=== PATIENT | female | born 1970 | race Caucasian/White ===

== ENCOUNTER → 2017-12-14 | Outpatient (CLI) | payer OTHER | LOC: PLD 14:18 → LAB SHORT 14:18 | DX: R87.810 Cervical high risk human papillomavirus (HPV) DNA test positive (principal) | CPT/HCPCS: 88305 ==

== ENCOUNTER → 2017-12-14 | Outpatient (CLI) | payer OTHER | LOC: LAB 12:31 → LAB SHORT 12:31 | DX: B37.3 Candidiasis of vulva and vagina (principal) | CPT/HCPCS: 87070; 87147; 87205 ==

== ENCOUNTER 2020-06-07 21:40 | Emergency (ER) | payer BC, OTHER ==
[~2020-06-07] VITALS: Ht 170.2 cm; Wt 76.2 kg
== END 2020-06-07 23:30 | disposition left against medical advice (07) ==
LOC: ER 21:40
DX: K92.0 Hematemesis (principal); R00.0 Tachycardia, unspecified
CPT/HCPCS: 99284-25; A9270

== ENCOUNTER 2020-06-08 12:54 | Inpatient (IN) | payer BC, OTHER ==
[~2020-06-08] VITALS: Ht 170.2 cm; Wt 73.7 kg
[2020-06-08 13:59] LABS: BASOPHILS ABSOLUTE AUTO 0.03 K/mm3 (0.00-0.23); BASOPHILS PERCENT AUTO 0 % (0-2); EOSINOPHILS ABSOLUTE AUTO 0.02 K/mm3 (0.00-0.68); EOSINOPHILS PERCENT AUTO 0 % (0-6); Hematocrit 29.6 % (33.0-51.0); Hemoglobin 9.7 g/dL (11.5-16.0); IMMATURE GRAN ABSOLUTE AUTO 0.03 K/mm3 (0.00-0.10); IMMATURE GRAN PERCENT AUTO 0 % (0-1); LYMPHOCYTES ABSOLUTE AUTO 0.52 K/mm3 (0.84-5.20); LYMPHOCYTES PERCENT AUTO 7 % (21-46); MONOCYTES ABSOLUTE AUTO 0.89 K/mm3 (0.16-1.47); MONOCYTES PERCENT AUTO 12 % (4-13); Mean Corpuscular HGB 31.8 pg (26.0-34.0); Mean Corpuscular HGB Conc 32.8 g/dL (31.5-36.5); Mean Corpuscular Volume 97 fL (80-100); NEUTROPHILS ABSOLUTE AUTO 6.13 K/mm3 (1.96-9.15); NEUTROPHILS PERCENT AUTO 80 % (41-73); Platelet Count 92 K/mm3 (150-400); RDW Coefficient Variation 14.8 % (11.7-14.2); RDW Standard Deviation 52.6 fL (35.1-46.3); Red Blood Cell Count 3.05 M/mm3 (3.80-5.20); White Blood Cell Count 7.62 K/mm3 (4.00-11.30)
[2020-06-08 14:08] LABS: Alanine Aminotransfer (ALT/SGP 61 U/L (12-78); Albumin/Globulin Ratio 0.5 (0.8-1.8); Alk Phos 102 U/L (50-136); Anion Gap 7 mmol/L (6-16); Aspartate Aminotrans (AST/SGOT 106 U/L (12-37); Blood Urea Nitrogen 16 mg/dL (8-24); Bun/Creatinine Ratio 33.7 (12.0-20.0); CO2, Blood 26 mmol/L (21-32); Calcium, Blood 8.4 mg/dL (8.5-10.1); Chloride, Blood 102 mmol/L (98-108); Creatinine, Blood 0.48 mg/dL (0.40-1.00); Globulin, Blood 6.1 g/dL (2.2-4.0); Glomerular Filtration Rate >60 (60-); Glucose, Blood 112 mg/dL (70-99); Potassium, Blood 3.7 mmol/L (3.5-5.5); Sodium, Blood 135 mmol/L (136-145); Total Protein, Blood 9.1 g/dL (6.4-8.2)
[2020-06-08 16:03] LABS: International Normalized Ratio 1.19; Prothrombin Time Results 12.6 Sec (9.7-11.5)
[2020-06-08 18:26] LABS: Influenza A, PCR NEGATIVE (NEGATIVE); Influenza B, PCR NEGATIVE (NEGATIVE); Resp Syncytial Virus, PCR NEGATIVE (NEGATIVE); SARS-Cov-2 (COVID-19) PCR, MMC NEGATIVE (NEGATIVE)
[2020-06-08 19:09] LABS: Hematocrit 23.6 % (33.0-51.0); Hemoglobin 7.8 g/dL (11.5-16.0)
--- NOTE | 2020-06-08 20:56 | NUR ---
PHARMACIST PHARMACY CALLED REGARDING IV COMPATABILITY FOR PROTONIX, SANDOSTATIN, AND BANNANA BAG. PHARMACIST STATES PROTONIX AND SANDOSTATIN COMPATABLE AT Y SITE.
[2020-06-09 01:37] LABS: Hematocrit 23.1 % (33.0-51.0); Hemoglobin 7.6 g/dL (11.5-16.0); Mean Corpuscular HGB 32.2 pg (26.0-34.0); Mean Corpuscular HGB Conc 32.9 g/dL (31.5-36.5); Mean Corpuscular Volume 98 fL (80-100); Mean Platelet Volume 10.3 fL (9.1-12.4); Platelet Count 83 K/mm3 (150-400); RDW Coefficient Variation 14.8 % (11.7-14.2); RDW Standard Deviation 53.7 fL (35.1-46.3); Red Blood Cell Count 2.36 M/mm3 (3.80-5.20); White Blood Cell Count 7.51 K/mm3 (4.00-11.30)
[2020-06-09 01:55] LABS: Alanine Aminotransfer (ALT/SGP 47 U/L (12-78); Albumin, Blood 2.5 g/dL (3.4-5.0); Albumin/Globulin Ratio 0.5 (0.8-1.8); Alk Phos 82 U/L (50-136); Anion Gap 7 mmol/L (6-16); Aspartate Aminotrans (AST/SGOT 82 U/L (12-37); Bilirubin, Total 1.6 mg/dL (0.1-1.0); Blood Urea Nitrogen 12 mg/dL (8-24); Bun/Creatinine Ratio 23.1 (12.0-20.0); CO2, Blood 24 mmol/L (21-32); Calcium, Blood 7.4 mg/dL (8.5-10.1); Chloride, Blood 108 mmol/L (98-108); Creatinine, Blood 0.52 mg/dL (0.40-1.00); Glomerular Filtration Rate >60 (60-); Glucose, Blood 104 mg/dL (70-99); Magnesium, Blood 1.9 mg/dL (1.6-2.4); Phosphorus, Blood 1.9 mg/dL (2.5-4.9); Potassium, Blood 3.6 mmol/L (3.5-5.5); Sodium, Blood 139 mmol/L (136-145); Total Protein, Blood 7.5 g/dL (6.4-8.2)
[2020-06-09 03:34] LABS: Source, Urine Clean Catch
[2020-06-09 03:35] LABS: Bilirubin, Urine Neg (Neg); Blood, Urine 5+ (Neg); Glucose Qualitative, Urine Neg (Neg); Ketones, Urine Neg (Neg); Leukocyte Esterase, Urine 3+ (Neg); Nitrite, Urine Neg (Neg); Protein, Urine 1+ (Neg); Urobilinogen, Urine NORM (Normal)
[2020-06-09 03:43] LABS: Appearance, Urine Hazy (Clear); Color, Urine Yellow (P-Yellow)
[2020-06-09 03:45] LABS: Bacteria Mod /hpf; Squamous Epithelial Cells Mod /hpf (Few); White Blood Cells, Urine 25-50 /hpf (0-5)
--- NOTE | 2020-06-09 06:03 | NUR ---
SHIFT SUMMARY PT TO UNIT FROM ED AT BEGINNING OF SHIFT. AXO. DAUGHTER PRESENT TO HELP WITH ASDMISSION. ADMIT PACKET COMPLETED. PT ON RA. IN ST 100'S WITH STABLE VS. PT HAVING MULTIPLE BM'S. BEGINNING OF SHIFT, LARGE RED LIQUID STOOLS. THESE HAVE SLOWLY DARKENED AND LESSENED IN AMOUNT. PT DENYING NAUSEA POST ADMIT. PT NPO EXCEPT A FEW SWIGS OF WATER. PROTONIX, PANTOPRAZOLE, NS, AND BANNANA BAG INFUSING. HGB STILL >7 AT THIS TIME. WILL CONTINUE TO MONITOR UNTIL SHIFT CHANGE.
[2020-06-09 08:28] LABS: Hematocrit 22.8 % (33.0-51.0); Hemoglobin 7.3 g/dL (11.5-16.0)
--- NOTE | 2020-06-09 12:06 | NUR ---
06/09/20 1206 Raquel Bergeron History, Chart, Medications and Allergies reviewed before start of procedure.MONITOR INTACT WITH CONTINUOUS PULSE OXIMETRY AND INTERMITTENT BP.3-LEAD EKG REVIEWED WITH PHYSICIAN PRIOR TO START OF PROCEDURE.O2 VIA N/C INTACT THROUGHOUT SEDATION/PROCEDURE. See Anesthesia record.
--- NOTE | 2020-06-09 12:30 | NUR ---
ZOFRAN 4MG WAS GIVEN POST PRECEDURE DUE TO N/V.
[2020-06-09 13:51] LABS: Hematocrit 22.2 % (33.0-51.0); Hemoglobin 7.2 g/dL (11.5-16.0)
--- NOTE | 2020-06-09 17:46 | NUR ---
SHIFT SUMMARY PATIENT CONTINUED TO HAVE LIQUID AND RED STOOLS THIS SHIFT. PATIENT HAD EGD DONE BY DR. PINK, VARICES FOUND AND BANDS PLACED, SEE OPERATIVE REPORT. Hgb REMAINED 7+ THIS SHIFT. PATIENT CONTINUED ON OCTREOTIDE GTT, PROTONIX CHANGED TO IV BID. PATIENT STARTED ON CLEAR LIQUID DIET, LOW INTAKE REST OF SHIFT POST-EGD. PATIENT REQUESTING TO REST. PATIENT HYPERTENSIVE AT TIMES, STARTING INDERAL TONIGHT FOR BP. PATIENT ON ROOM AIR, SBA TO BEDSIDE COMMODE FOR LINE MANAGEMENT.
[2020-06-10 04:10] LABS: Hematocrit 23.4 % (33.0-51.0); Hemoglobin 7.6 g/dL (11.5-16.0)
[2020-06-10 04:55] LABS: Percent Saturation 13.8 % (15.0-50.0); Phosphorus, Blood 2.5 mg/dL (2.5-4.9)
--- NOTE | 2020-06-10 05:44 | NUR ---
SHIFT SUMMARY NO ACUTE CHANGES THIS SHIFT. VSS. PANTOPRAZOLE GTT INFUSING PER EMAR. NO BLOODY BM'S THIS SHIFT. PT DENIES NAUSEA. REMAINS IN SR, ON RA, AND COOPERATIVE. 1 BROWN BM THIS SHIFT. OTHERWISE, PT RESTING IN ROOM T/O SHIFT. HGB RISING. WILL CONTINUE TO MONITOR UNTIL SHIFT CHANGE.
--- NOTE | 2020-06-10 07:30 | NUR ---
ASSUMED CARE: CAME TO BEDSIDE TO REPLACE TELEMETRY AFTER PT GAVE SELF BEDBATH. PT DENIES DARK OR BLOODY STOOL SINCE PROCEDURE. SANDOSTATIN GTT RUNNING. NSR ON TELE. NO ACUTE NEEDS OR CONCERNS AT THIS TIME.
[2020-06-10] MEDS ORDERED: Hair, Skin & N1 EACH PO (11:05)
[2020-06-10] MEDS ORDERED: CARAFATE1 GM/10 M1 PO (11:05)
[2020-06-10] MEDS ORDERED: CIPR500 PO (11:06)
[2020-06-10] MEDS ORDERED: B-1100 M1 PO (11:06)
[2020-06-10] MEDS ORDERED: DOCU100 PO (11:06)
[2020-06-10] MEDS ORDERED: SENN187 PO (11:07)
[2020-06-10] MEDS ORDERED: FEROSUL325 M1 PO (11:07)
[2020-06-10] MEDS ORDERED: PANT40 PO (11:07)
[2020-06-10] MEDS ORDERED: NADO20 PO (11:07)
--- NOTE | 2020-06-10 11:59 | NUR ---
PT GIVEN INSTRUCTIONS REGARDING NEW MEDICATIONS AND FOLLOW UP APPOINTMENTS. PT GIVEN NUMBERS OF A FEW CLINICS SO THAT PT COULD ESTABLISH PCP. DENIED FURTHER QUESTIONS OR CONCERNS. ESCORTED OUT VIA WHEEL CHAIR BY TONEY. LOREE CORTEZ
[2020-06-11 05:09] LABS: HBSAG SCREEN Negative (Negative); HEP A AB, IGM Negative (Negative); HEP B CORE AB, IGM Positive (Negative); HEP C VIRUS AB <0.1 (0.0-0.9)
== END 2020-06-10 11:40 | disposition home or self-care (01) | DRG 433 ==
LOC: ER 12:54 → ERHOLD 16:15 → PCU 16:15
PROVIDERS: Emergency Medicine; Physician Assistant; Student in an Organized Health Care Education/Training Program; ADMIT Internal Medicine
PROC: 06L38CZ Occlusion of Esophageal Vein with Extraluminal Device, Via Natural or Artificial Opening Endoscopic (ICD-10-PCS; principal; 2020-06-09 11:30)
DX: K70.30 Alcoholic cirrhosis of liver without ascites (principal); E87.1 Hypo-osmolality and hyponatremia; K76.6 Portal hypertension; I85.10 Secondary esophageal varices without bleeding; D69.59 Other secondary thrombocytopenia; E83.39 Other disorders of phosphorus metabolism; D50.0 Iron deficiency anemia secondary to blood loss (chronic); Z20.822 Contact with and (suspected) exposure to COVID-19
CPT/HCPCS: 0241U; 36415; 71045; 76705; 80053; 80074; 81001; 82105; 82607; 82728; 82746; 83540; 83550; 83735; 84100; 85014; 85018; 85025; 85027; 85610; 85730; 87086; 93005; 93010; 96361; 96365; 96375; 99285-25; A9270; C9113; G0480; J0696; J2250; J2354; J2405; J2704; J3411; J3475; J7030; J7042; J7050; J7060; J7120

== ENCOUNTER 2020-06-27 16:01 | Emergency (ER) | payer OTHER ==
[~2020-06-27] VITALS: Ht 170.2 cm; Wt 73.5 kg
[~2020-06-27 16:01] MED LIST: B-1100 M1 PO; CARAFATE1 GM/10 M1 PO; CIPR500 PO; DOCU100 PO; FEROSUL325 M1 PO; Hair, Skin & N1 EACH PO; NADO20 PO; PANT40 PO; SENN187 PO
[2020-06-27 17:23] LABS: BASOPHILS ABSOLUTE AUTO 0.04 K/mm3 (0.00-0.23); BASOPHILS PERCENT AUTO 1 % (0-2); EOSINOPHILS ABSOLUTE AUTO 0.13 K/mm3 (0.00-0.68); EOSINOPHILS PERCENT AUTO 2 % (0-6); Hemoglobin 9.3 g/dL (11.5-16.0); IMMATURE GRAN ABSOLUTE AUTO 0.02 K/mm3 (0.00-0.10); IMMATURE GRAN PERCENT AUTO 0 % (0-1); LYMPHOCYTES ABSOLUTE AUTO 0.85 K/mm3 (0.84-5.20); LYMPHOCYTES PERCENT AUTO 12 % (21-46); MONOCYTES ABSOLUTE AUTO 0.74 K/mm3 (0.16-1.47); MONOCYTES PERCENT AUTO 10 % (4-13); Mean Corpuscular HGB 30.5 pg (26.0-34.0); Mean Corpuscular Volume 98 fL (80-100); Mean Platelet Volume 9.4 fL (9.1-12.4); NEUTROPHILS ABSOLUTE AUTO 5.61 K/mm3 (1.96-9.15); NEUTROPHILS PERCENT AUTO 76 % (41-73); Platelet Count 268 K/mm3 (150-400); RDW Coefficient Variation 14.7 % (11.7-14.2); Red Blood Cell Count 3.05 M/mm3 (3.80-5.20); White Blood Cell Count 7.39 K/mm3 (4.00-11.30)
[2020-06-27 17:46] LABS: Alanine Aminotransfer (ALT/SGP 24 U/L (12-78); Albumin, Blood 2.8 g/dL (3.4-5.0); Albumin/Globulin Ratio 0.5 (0.8-1.8); Alk Phos 102 U/L (50-136); Anion Gap 6 mmol/L (6-16); Aspartate Aminotrans (AST/SGOT 23 U/L (12-37); Bilirubin, Total 0.7 mg/dL (0.1-1.0); Blood Urea Nitrogen 6 mg/dL (8-24); Bun/Creatinine Ratio 8.3 (12.0-20.0); CO2, Blood 26 mmol/L (21-32); Chloride, Blood 105 mmol/L (98-108); Creatinine, Blood 0.72 mg/dL (0.40-1.00); Glomerular Filtration Rate >60 (60-); Glucose, Blood 81 mg/dL (70-99); Potassium, Blood 3.4 mmol/L (3.5-5.5); Sodium, Blood 137 mmol/L (136-145); Total Protein, Blood 8.8 g/dL (6.4-8.2)
== END 2020-06-27 20:34 | disposition home or self-care (01) ==
LOC: ER 16:01
PROVIDERS: Physician Assistant
DX: K92.2 Gastrointestinal hemorrhage, unspecified (principal); Z79.899 Other long term (current) drug therapy
CPT/HCPCS: 36415; 80053; 85025; 86850; 86900; 86901; 99283

== ENCOUNTER → 2020-07-06 | Outpatient (CLI) | payer OTHER | LOC: LAB SHORT 14:30 → LAB 14:30 | DX: N89.8 Other specified noninflammatory disorders of vagina (principal); Z88.6 Allergy status to analgesic agent | CPT/HCPCS: 87070; 87147; 87205 ==

== ENCOUNTER → 2020-07-09 | Outpatient (CLI) | payer OTHER ==
[2020-07-11 01:08] LABS: CHLAMYDIA TRACHOMATIS, NAA Negative (Negative)
== END | disposition home or self-care (01) ==
LOC: LAB SHORT 10:30 → LAB 10:30
PROVIDERS: Family Medicine
DX: N89.8 Other specified noninflammatory disorders of vagina (principal)
CPT/HCPCS: 87491; 87591

== ENCOUNTER → 2020-07-11 | Outpatient (CLI) | payer OTHER ==
[2020-07-13 11:10] LABS: HPV 16 Negative (Negative); HPV 18 Negative (Negative); HPV OTHER HR TYPES Negative (Negative)
[2020-07-13 20:06] LABS: CHLAMYDIA BY NAA Negative (Negative); GONOCOCCUS BY NAA Negative (Negative); TRICH VAG BY NAA Positive (Negative)
== END | disposition home or self-care (01) ==
LOC: LAB SHORT 17:25 → PLD 17:25
PROVIDERS: Nurse Practitioner
DX: Z12.4 Encounter for screening for malignant neoplasm of cervix (principal); N89.8 Other specified noninflammatory disorders of vagina
CPT/HCPCS: 87070; 87077; 87147; 87186; 87205; 87491; 87591; 87624; 87661; G0123

== ENCOUNTER 2020-07-23 13:01 | Day surgery (SDC) | payer OTHER ==
[~2020-07-23] VITALS: Ht 170.2 cm; Wt 70.2 kg
== END 2020-07-23 15:59 | disposition home or self-care (01) ==
LOC: ORSCSDS 13:01
PROVIDERS: Student in an Organized Health Care Education/Training Program
PROC: 0DB78ZX Excision of Stomach, Pylorus, Via Natural or Artificial Opening Endoscopic, Diagnostic (ICD-10-PCS; principal; 2020-07-23 14:15)
PROC: 06L38CZ Occlusion of Esophageal Vein with Extraluminal Device, Via Natural or Artificial Opening Endoscopic (ICD-10-PCS; principal; 2020-07-23 14:15)
PROC: 0DBN8ZX Excision of Sigmoid Colon, Via Natural or Artificial Opening Endoscopic, Diagnostic (ICD-10-PCS; principal; 2020-07-23 14:15)
DX: K62.5 Hemorrhage of anus and rectum (principal); Z13.810 Encounter for screening for upper gastrointestinal disorder; D12.5 Benign neoplasm of sigmoid colon; K74.69 Other cirrhosis of liver; I85.10 Secondary esophageal varices without bleeding; K76.6 Portal hypertension; K31.89 Other diseases of stomach and duodenum; K63.89 Other specified diseases of intestine; K64.8 Other hemorrhoids; K64.4 Residual hemorrhoidal skin tags; F17.210 Nicotine dependence, cigarettes, uncomplicated; I10 Essential (primary) hypertension; Z79.899 Other long term (current) drug therapy
CPT/HCPCS: 88305; 88342; J2001; J2405; J2704; J7120

== ENCOUNTER 2020-12-04 10:48 | Day surgery (SDC) | payer OTHER ==
[~2020-12-04] VITALS: Ht 170.2 cm; Wt 72.0 kg
== END 2020-12-04 12:40 | disposition home or self-care (01) ==
LOC: ORSCSDS 10:48
PROVIDERS: Student in an Organized Health Care Education/Training Program
PROC: 06L38CZ Occlusion of Esophageal Vein with Extraluminal Device, Via Natural or Artificial Opening Endoscopic (ICD-10-PCS; principal; 2020-12-04 12:00)
PROC: 0DB68ZX Excision of Stomach, Via Natural or Artificial Opening Endoscopic, Diagnostic (ICD-10-PCS; principal; 2020-12-04 12:00)
DX: K74.69 Other cirrhosis of liver (principal); I85.10 Secondary esophageal varices without bleeding; K76.6 Portal hypertension; K31.89 Other diseases of stomach and duodenum
CPT/HCPCS: 88305; 88342; J2704; J7120

== ENCOUNTER 2021-03-05 10:49 | Day surgery (SDC) | payer OTHER ==
[~2021-03-05] VITALS: Ht 170.2 cm; Wt 68.8 kg
--- NOTE | 2021-03-05 11:57 | NUR ---
03/05/21 1157 PRECIOUS WARE History, Chart, Medications and Allergies reviewed before start of procedure. 3-LEAD EKG REVIEWED WITH PHYSICIAN PRIOR TO START OF PROCEDURE. O2 VIA POM INTACT THROUGHOUT SEDATION/PROCEDURE. MONITOR INTACT WITH CONTINUOUS PULSE OXIMETRY AND INTERMITTENT BP. MAC WITH DR. DA SILVA.
--- NOTE | 2021-03-05 12:54 | NUR ---
Patient up to Ambulate independently. Gait steady. Discharge instructions reviewed with patient. Patient verbalizes understanding. Copy given to patient to take home. Discharged via wheelchair to private car for ride home WITH FRIEND
== END 2021-03-05 22:44 | disposition home or self-care (01) ==
LOC: ORSCMMR 10:49 → ORSCSDS 12:00 → ORD 12:00 → ORSCMMR 22:44
PROVIDERS: Student in an Organized Health Care Education/Training Program
PROC: 0DB78ZX Excision of Stomach, Pylorus, Via Natural or Artificial Opening Endoscopic, Diagnostic (ICD-10-PCS; principal; 2021-03-05 12:00)
DX: K74.60 Unspecified cirrhosis of liver (principal); I85.10 Secondary esophageal varices without bleeding; Z13.810 Encounter for screening for upper gastrointestinal disorder; K76.6 Portal hypertension; K31.89 Other diseases of stomach and duodenum; K29.70 Gastritis, unspecified, without bleeding; I10 Essential (primary) hypertension; Z79.899 Other long term (current) drug therapy
CPT/HCPCS: 88305; 88342; J2405; J2704; J7120

== ENCOUNTER → 2021-06-07 | Outpatient (CLI) | payer OTHER | LOC: LAB SHORT 12:05 → LAB 12:05 | DX: R30.9 Painful micturition, unspecified (principal) | CPT/HCPCS: 87077; 87086; 87186 ==

== ENCOUNTER → 2021-07-29 | Outpatient (CLI) | payer OTHER ==
[2021-07-30 10:59] LABS: Candida species (DNA Probe) Negative (NEGATIVE); G. vaginalis (DNA Probe) Negative (NEGATIVE); T. vaginalis (DNA Probe) Positive (NEGATIVE)
== END | disposition home or self-care (01) ==
LOC: LAB 13:27 → LAB SHORT 13:27
PROVIDERS: Student in an Organized Health Care Education/Training Program
DX: N39.0 Urinary tract infection, site not specified (principal)
CPT/HCPCS: 87086; 87480; 87510; 87660

== ENCOUNTER 2021-12-03 10:21 | Day surgery (SDC) | payer OTHER ==
[~2021-12-03] VITALS: Ht 170.2 cm; Wt 71.8 kg
[2021-12-03] MEDS ORDERED: Vitamin B-150 MG (10:47)
== END 2021-12-03 12:38 | disposition home or self-care (01) ==
LOC: ORSCSDS 10:21
PROVIDERS: Student in an Organized Health Care Education/Training Program
PROC: 0DB78ZX Excision of Stomach, Pylorus, Via Natural or Artificial Opening Endoscopic, Diagnostic (ICD-10-PCS; principal; 2021-12-03 12:00)
DX: K74.60 Unspecified cirrhosis of liver (principal); K21.9 Gastro-esophageal reflux disease without esophagitis; K76.6 Portal hypertension; K31.89 Other diseases of stomach and duodenum; I85.00 Esophageal varices without bleeding; K29.70 Gastritis, unspecified, without bleeding; I10 Essential (primary) hypertension; Z79.899 Other long term (current) drug therapy
CPT/HCPCS: 88305; 88342; J2704; J7120

== ENCOUNTER → 2022-04-08 | Outpatient (CLI) | payer OTHER ==
[~2022-04-08] MED LIST changes: +Vitamin B-150 MG
== END ==
LOC: LAB SHORT 15:15 → LAB 15:15
DX: R30.0 Dysuria (principal)
CPT/HCPCS: 87086

== ENCOUNTER → 2022-10-02 | Outpatient (CLI) | payer OTHER ==
[2022-10-02 13:53] LABS: International Normalized Ratio 1.13; Prothrombin Time Results 11.8 Sec (9.7-11.5)
[2022-10-02 14:01] LABS: BASOPHILS ABSOLUTE AUTO 0.03 K/mm3 (0.00-0.23); BASOPHILS PERCENT AUTO 0 % (0-2); EOSINOPHILS ABSOLUTE AUTO 0.16 K/mm3 (0.00-0.68); EOSINOPHILS PERCENT AUTO 2 % (0-6); Hematocrit 38.5 % (33.0-51.0); Hemoglobin 12.7 g/dL (11.5-16.0); IMMATURE GRAN ABSOLUTE AUTO 0.02 K/mm3 (0.00-0.10); IMMATURE GRAN PERCENT AUTO 0 % (0-1); LYMPHOCYTES ABSOLUTE AUTO 1.18 K/mm3 (0.84-5.20); LYMPHOCYTES PERCENT AUTO 17 % (21-46); MONOCYTES ABSOLUTE AUTO 0.55 K/mm3 (0.16-1.47); MONOCYTES PERCENT AUTO 8 % (4-13); Mean Corpuscular HGB 28.5 pg (26.0-34.0); Mean Corpuscular Volume 87 fL (80-100); NEUTROPHILS ABSOLUTE AUTO 4.87 K/mm3 (1.96-9.15); NEUTROPHILS PERCENT AUTO 72 % (41-73); Platelet Count 228 K/mm3 (150-400); RDW Standard Deviation 44.7 fL (35.1-46.3); Red Blood Cell Count 4.45 M/mm3 (3.80-5.20); White Blood Cell Count 6.81 K/mm3 (4.00-11.30)
[2022-10-02 14:17] LABS: Albumin, Blood 3.4 g/dL (3.4-5.0); Albumin/Globulin Ratio 0.7 (0.8-1.8); Bilirubin, Total 0.5 mg/dL (0.1-1.0); Calcium, Blood 8.8 mg/dL (8.5-10.1); Creatinine, Blood 0.62 mg/dL (0.40-1.00); Globulin, Blood 5.1 g/dL (2.2-4.0); Potassium, Blood 3.9 mmol/L (3.5-5.5); Total Protein, Blood 8.5 g/dL (6.4-8.2)
== END | disposition home or self-care (01) ==
LOC: LAB SHORT 12:04 → LAB 12:04
PROVIDERS: Family Medicine
DX: K70.30 Alcoholic cirrhosis of liver without ascites (principal); K76.6 Portal hypertension
CPT/HCPCS: 80053; 82105; 85025; 85610

== ENCOUNTER 2022-12-02 13:18 | Day surgery (SDC) | payer OTHER ==
[~2022-12-02] VITALS: Ht 170.2 cm; Wt 74.0 kg
--- NOTE | 2022-12-02 14:11 | NUR ---
12/02/22 1411 DIEUDONNE DENNIS PT PLEASANT AND COOPERATIVE WITH CARE.
[2022-12-02 14:57] VITALS: BP 129/82
== END 2022-12-02 14:54 | disposition home or self-care (01) ==
LOC: ORSCSDS 13:18
PROVIDERS: Specialist
PROC: 0DJ08ZZ Inspection of Upper Intestinal Tract, Via Natural or Artificial Opening Endoscopic (ICD-10-PCS; principal; 2022-12-02 15:00)
DX: I85.00 Esophageal varices without bleeding (principal); K70.30 Alcoholic cirrhosis of liver without ascites; Z87.891 Personal history of nicotine dependence; Z79.899 Other long term (current) drug therapy; K76.6 Portal hypertension; K31.89 Other diseases of stomach and duodenum; K44.9 Diaphragmatic hernia without obstruction or gangrene
CPT/HCPCS: J0461; J2001; J2405; J2704; J7120; Q9968

== ENCOUNTER → 2023-01-13 | Outpatient (CLI) | payer OTHER ==
[2023-01-14 16:03] LABS: CHOL/HDL RATIO 3.3; Cholesterol 146 mg/dL (50-200); HDL Cholesterol 44 mg/dL (>39); LDL/HDL RATIO 1.9; Low Density Lipoprotein Chol 85 mg/dL (0-110); Triglycerides 86 mg/dL (30-160); Very Low Density Lipoprot Chol 17 mg/dL (6-32)
== END | disposition home or self-care (01) ==
LOC: LAB 16:19 → LAB SHORT 16:19
PROVIDERS: Registered Nurse Community Health
DX: N95.1 Menopausal and female climacteric states (principal)
CPT/HCPCS: 80061; 83001; 83002; 83036